=== PATIENT | male | born 2000 | race Caucasian/White ===

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

== ENCOUNTER 2019-07-30 19:59 | Emergency (ER) | payer BC, SELFPAY ==
[~2019-07-30] VITALS: Ht 177.8 cm; Wt 95.5 kg
--- NOTE | 2019-07-30 20:35 | ECGEPIP ---
[facility] - ED Test Date: 2019-07-30 Pat Name: GEORGETTE JACOBO Department: Room: - Gender: Male Director Prospect: ROMEL : 2000 Requested By: CHER HERNANDEZ Order Number: [id number] Reading MD: Robb Pacheco Measurements Intervals [place] Rate: 83 P: 43 ME: 126 QRS: 83 QRSD: 102 T: 41 QT: 345 QTc: 407 Interpretive Statements SINUS RHYTHM Comparison tracing not on file Electronically Signed on 07-30-2019 20:35:31 EDT by Robb Pacheco
[2019-07-30] MEDS ORDERED: KETOROLAC 30 MG/ML 1ML VIAL IV ONE (20:45)
[2019-07-30 20:52] LABS: BASO % 0.5 % (0.0-1.0); EOS # 0.2 10^3/uL (0.0-0.5); HEMOGLOBIN 13.5 g/dl (13.5-17.5); LYMPH # 2.2 10^3/uL (1.5-5.0); LYMPH % 29.6 % (24.0-44.0); MEAN CORPUSCULAR HEMOGLOBIN 29.3 pg (27.0-33.0); MEAN CORPUSCULAR HGB CONC 32.1 g/dl (32.0-36.5); MEAN CORPUSCULAR VOLUME 91.1 fl (80.0-96.0); MONO # 0.8 10^3/uL (0.0-0.8); MONO % 10.8 % (0.0-5.0); NEUTROPHILS # 4.2 10^3/uL (1.5-8.5); NEUTROPHILS % 56.8 % (36.0-66.0); PLATELET COUNT, AUTOMATED 199 10^3/uL (150-450); RED BLOOD COUNT 4.61 10^6/uL (4.30-6.10); WHITE BLOOD COUNT 7.3 10^3/uL (4.0-10.0)
[2019-07-30 21:15] VITALS: BP 154/89
[2019-07-30 21:15] LABS: BLOOD UREA NITROGEN 7 MG/DL (7-18); CALCIUM LEVEL 9.4 MG/DL (8.5-10.1); CARBON DIOXIDE LEVEL 31 MEQ/L (21-32); CHLORIDE LEVEL 108 MEQ/L (98-107); CK-MB VALUE MASS 1.8 NG/ML (<3.6); CPK CREATINE PHOSPHOKINASE 167 U/L (39-308); GLUCOSE, FASTING 86 MG/DL (70-100); MB/CK RELATIVE INDEX 1.08 (< OR =4); POTASSIUM SERUM 4.2 MEQ/L (3.5-5.1); SODIUM LEVEL 145 MEQ/L (136-145); TROPONIN I < 0.02 NG/ML (< 0.10)
--- NOTE | 2019-07-31 10:31 | REP ---
Single view chest: 07/30/2019. Indication: Chest pain. Comparison: None. Findings: The lungs are clear. There is no pleural effusion or pneumothorax. The cardiac silhouette is unremarkable. Impression: Clear lungs. Electronically Signed by Garrison Dowell DO 07/31/2019 10:22 A
== END 2019-07-30 21:37 | disposition home or self-care (01) ==
LOC: M ED 19:59
DX: R07.1 Chest pain on breathing (principal)
CPT/HCPCS: 71045; 80048; 82550; 82553; 84484; 85025; 93005; 96374; 99284; J1885